=== PATIENT | female | born 1985 | race Caucasian/White ===

== ENCOUNTER 2016-06-26 21:29 | Emergency (ER) | payer OTHER ==
[2016-06-26] MEDS ORDERED: ASPIRIN 81 MG TAB.CHEW PO ONE (21:46)
--- NOTE | 2016-06-26 21:58 | ERNOTE ---
Chest Pain/Cardiac HPI Chief Complaint: Chest Pain Time Seen by Provider: 06/26/16 21:40 Source: patient Exam Limitations: no limitations Immunizations: IMMUNIZATION HX Immunizations Up to Date No History of Influenza Vaccine No Hx Pneumococcal Vaccination No Allergies/Adverse Reactions: Allergies Penicillins Allergy (Unknown, Verified 06/26/16 21:47) unsure what happens Home Medications: HOME MEDICATIONS Ibuprofen [Motrin] 800 mg PO Q6H PRN #30 tablet 09/12/14 [Last Taken Unknown] Ibuprofen [Motrin] 600 mg PO Q6H PRN #90 tab 06/26/16 [Last Taken Unknown] Narrative: Here for right upper chest wall pain for six months. This is the EXACT SAME CHEST WALL PAIN. pt states it gets worse when in certain positions. She has had this pain for six months, has NOT seeked any medical attention for this problem. She does smoke on a daily basis Review of Systems - Review of Systems Constitutional: Present: no symptoms reported EYE: Present: no symptoms reported ENT: Present: no symptoms reported Respiratory: Present: See HPI Cardiology: Present: See HPI Gastrointestinal/Abdominal: Present: no symptoms reported Genitourinary: Present: no symptoms reported Musculoskeletal: Present: See HPI Skin: Present: no symptoms reported - Patient's Past Medical History Patient History - Medical: No pertinent hx Patient History - Cardiac/Respiratory: Other Patient History - Cancer: No Hx of Cancer Patient History - Surgical Procedures: Other Patient History - Other: None LMP (females 10-50): 1 month LMP (Calendar): 12/18/14 - Family History Mother Family History - Medical: No pertinent hx Family History - Cardiac/Respiratory: No pertinent hx - Social History Living Situations: home Abuse History: No History of abuse Psych History: No pertinent hx Smoking Status: Current every day smoker Alcohol Use: none Drug Use: none - Immunizations Immunizations Up to Date: No Hx Pneumococcal Vaccination: No History of Influenza Vaccine: No Physical Exam - Physical Exam General Appearance: Present: wd/wn, alert, no apparent distress Ears, Nose, Throat: Present: normal ENT inspection, other - adentulous Neck: Present: normal inspection, nontender, supple Respiratory: Present: no respiratory distress, normal breath sounds, no accessory muscle use, lungs clear, other - There is tenderness upon palpation of the right upper chest wall when I palpate ribs number 3,4,5 in mid axillary line, no lesions. pt pt has pain. also pain is worse with deep inpiration or when she twists her torso to the right ED Progress - Results and Orders Patient's Lab Results:: I have reviewed the patient's lab results. - Vital Signs Patient's Vital Signs:: I have reviewed the patient's vital signs. Vital Signs: Vital Signs 06/26/16 06/26/16 21:42 21:49 Temperature 36.4 C L Pulse Rate 48 L 45 L Respiratory 17 Rate Blood Pressure 124/53 O2 Sat by Pulse 100 Oximetry - X-Ray X-Ray #1 X-Ray: chest - Progress/Reassessment Chief Complaint: Chest Pain Plan - Plan Plan: I do not believe that this pain is cardiac in nature and will treat pt for costochondritis Departure - Departure Clinical Impression: Costochondritis Disposition: Home self-care Condition: Good Instructions: Costochondritis, [id number] Prescriptions: Ibuprofen [Motrin] 600 mg PO Q6H PRN #90 tab PRN Reason: Pain
--- OUTSIDE RECORDS SUMMARY | 2016-06-26 22:03 | XMS REPORT | Continuity of Care Document ---
:1985 Author Organization [facility] ([facility]) Address [address] [place] [address] Phone [phone] Care Team Providers Name Role Phone Provider, No-Primary Care Primary Care Provider Unavailable Source Comments This disclosure is being made pursuant to the Care Everywhere program, applicable federal and state laws, and may not contain all informaitonavailable regarding this patient.[facility] ([facility]) Active Allergies and Adverse Reactions Allergen Noted Date Severity Reactions Comments Penicillin V Potassium 06/05/2010 Unknown Patient doesn't know reaction Current Medications Prescription Sig. Disp. Refills Start Date End Date Status ibuprofen (IBU-200) 200 Take 200 mg by mouth Active mg tablet every 6 hours as needed. HYDROcodone-acetaminoph Take 1-2 Tabs by 20 Tab 0 06/05/2010 Active en 5-500 mg per tablet mouth. Every 4-6 hrs PRN maximum 8 tabs/24 hours. Indications: Pain ibuprofen 800 mg tablet Take 1 Tab by mouth 25 Tab 0 06/05/2010 Active every 6 hours as needed. maximum 4 tabs/24 hours Indications: Pain chlorhexidine (PERIDEX) Take 10-15 mL by 473 mL 2 06/05/2010 Active 0.12 % oral rinse mouth 2 times daily. Swish and spit NPO 1/2 hour. Indications: Mouth Infection Prevention multivitamin Take by mouth. Active with minerals PO Active Problems Problem Noted Date Other known or suspected abnormality, not elsewhere classified, 2014 affecting management of mother, antepartum condition or complication Bradycardia with 51 - 60 beats per minute 06/06/2014 Social History Tobacco Use Types Packs/Day Years Used Date Current Every Day Smoker 0.25 22 Comments:cut down from 2 ppd Alcohol Use Drinks/Week oz/Week Comments No Last Filed Vital Signs Vital Sign Reading Time Taken Blood Pressure 110/54 09/04/2014 11:08 AM CDT Pulse 46 09/04/2014 11:08 AM CDT Temperature 35.9 C (96.6 F) 06/06/2014 9:29 AM CDT Respiratory Rate 16 09/04/2014 11:08 AM CDT Height 1.549 m (5' 0.98") 06/06/2014 9:29 AM CDT Weight 55.9 kg (123 lb 3.8 oz) 06/06/2014 9:29 AM CDT Body Mass Index 23.3 06/06/2014 9:29 AM CDT Oxygen Saturation 100% 01/03/2010 2:20 PM [employer] Plan of Care Health Maintenance Due Date Last Done Comments Hepatitis B Vaccine (1 of 3 - Primary Series) 1984 Tdap Vaccine 11/05/1995 Lipid Disorder Screening 2002 MMR Vaccine 2002 Td Vaccine 2002 Varicella Vaccine (1 of 2 - Adult - No Evidence of 2002 Immunity) Pneumococcal Vaccine (1 of 1 - PPSV23) 11/05/2003 Cervical Cancer Screening 2014 Influenza Vaccine: Seasonal (#1) 09/23/2015 Results from Last 3 Months Not on file
[2016-06-26] MEDS ORDERED: ASPIRIN 81 MG TAB.CHEW ONE (22:10)
[2016-06-26 22:33] VITALS: BP 111/59
== END 2016-06-26 22:31 | disposition home or self-care (01) ==
LOC: ER 21:29
DX: M94.0 Chondrocostal junction syndrome [Tietze] (principal); Z72.0 Tobacco use

== ENCOUNTER 2016-08-27 19:35 | Emergency (ER) | payer OTHER ==
[2016-08-27] MEDS ORDERED: SULFACETAMIDE SODIUM 150 DROP BTL RIGHTEYE ONE (20:36)
--- NOTE | 2016-08-27 20:42 | ERNOTE ---
ENT HPI Presenting Symptoms: other - eyelid swelling Time Seen by Provider: 08/27/16 20:24 Source: patient, family Exam Limitations: no limitations - Immun/Allergies/Home Medications Immunizations: IMMUNIZATION HX Immunizations Up to Date Yes History of Influenza Vaccine No Hx Pneumococcal Vaccination No Allergies/Adverse Reactions: Allergies Allergy/AdvReac Type Severity Reaction Status Date / Time Penicillins Allergy Unknown Verified 08/27/16 19:55 Home Medications: HOME MEDICATIONS NK [No Home Medication] 08/27/16 [Last Taken Unknown] - History of Present Illness Narrative: Pt states that her right upper lid has been red and swelling for 4-5 days. This happens occasionally to her. is concerned that she still has stitches in her eyelid from a dog bite when she was young. Severity: Present: moderate ENT Location: Present: eye (R) - lid Prearrival Treatment: Present: no prearrival treatment Modifying Factors - Improves: Reports: heat Associated Symptoms - ENT: Denies: fever, headache Review of Systems - Review of Systems Constitutional: Absent: recent illness, fever EYE: Present: see HPI. Absent: vision changes ENT: Present: no symptoms reported Respiratory: Present: no symptoms reported Cardiology: Present: no symptoms reported Gastrointestinal/Abdominal: Present: no symptoms reported Genitourinary: Present: no symptoms reported Musculoskeletal: Present: no symptoms reported Skin: Present: See HPI Neurological: Present: no symptoms reported Endocrine: Present: no symptoms reported Hematologic/Lymphatic: Present: no symptoms reported Psych: Present: no symptoms reported - Patient's Past Medical History Patient History - Medical: No pertinent hx Patient History - Cardiac/Respiratory: Other Patient History - Cancer: No Hx of Cancer Patient History - Surgical Procedures: Other Patient History - Other: None LMP (females 10-50): now LMP (Calendar): 12/18/14 - Family History Mother Family History - Medical: No pertinent hx Family History - Cardiac/Respiratory: No pertinent hx - Social History Living Situations: home Abuse History: No History of abuse Psych History: No pertinent hx Smoking Status: Current every day smoker Alcohol Use: none Drug Use: none - Immunizations Immunizations Up to Date: Yes Hx Pneumococcal Vaccination: No History of Influenza Vaccine: No Physical Exam - Physical Exam General Appearance: Present: wd/wn, alert, no apparent distress Eye Exam: Normal inspection: left, PERRL: bilateral, EOMI: bilateral, Eyelid inflammation: right - upper lid mild / mod swelling and erythema Ears, Nose, Throat: Present: normal ENT inspection Neck: Present: normal inspection, nontender Respiratory: Present: no respiratory distress, no accessory muscle use Neurological Exam: Present: alert, oriented, normal mood/affect, no motor/ sensory deficits Skin Exam: Present: warm/dry, other - erythema to right upper lid. Small dark moles on upper lid unconcerning Lymphatic Exam: Present: no adenopathy ED Progress - Vital Signs Patient's Vital Signs:: I have reviewed the patient's vital signs. Vital Signs: Vital Signs 08/27/16 19:52 Temperature 36.9 C Pulse Rate 60 Respiratory 15 Rate Blood Pressure 129/51 O2 Sat by Pulse 99 Oximetry - Progress/Reassessment Chief Complaint: Eye Injury/Trauma Departure Clinical Impression: Hordeolum externum (ye) Qualifiers: Laterality: right Eyelid: upper Qualified Code(s): H00.011 - Hordeolum externum right upper eyelid - Departure Disposition: Home self-care Condition: Good Instructions: Wm Additional Instructions: use drops for 5-7 days. If not completely healed after 7 days see your regular doctor. Continue to use warm packs 10-15 minutes 4-5 times a day.
[2016-08-27] MEDS ORDERED: SULFACETAMIDE SODIUM 150 DROP BTL ONE (20:44)
[2016-08-27 21:01] VITALS: BP 109/47
== END 2016-08-27 21:04 | disposition home or self-care (01) ==
LOC: ER 19:35
DX: H00.011 Hordeolum externum right upper eyelid (principal)